=== PATIENT | male | born 1935 | race Caucasian/White ===

== ENCOUNTER 2022-07-26 07:41 | Outpatient (CLI) | payer MEDICARE, SELFPAY ==
[2022-07-26 09:57] LABS: Chloride* 106 mmol/L (96-114)
[2022-07-26 09:58] LABS: Potassium* 4.4 mmol/L (3.6-5.1); Sodium* 142 mmol/L (135-149)
[2022-07-26 10:00] LABS: Alkaline Phosphatase* 74 U/L (40-150); Aspartate Amino Transferase* 37 U/L (12-35); Blood Urea Nitrogen* 18 mg/dL (7-30); Carbon Dioxide* 33 mmol/L (20-32); Cholesterol* 126 mg/dL (90-199); Creatinine* 0.8 mg/dL (0.5-1.5); Estimated Glomerular Filt Rate 86 ml/min; Glucose* 108 mg/dL (60-115); Total Protein* 6.5 g/dL (6.0-8.3)
[2022-07-26 10:01] LABS: Alanine Aminotransferase* 32 U/L (4-50); Calcium* 8.9 mg/dL (8.4-10.6); HDL Cholesterol* 49 mg/dL (>=40); LDL Cholesterol Calculated 62 mg/dL (<100); Triglycerides* 74 mg/dL (40-149)
[2022-07-26 10:32] LABS: PSA Screen* 1.21 ng/mL (0.10-4.00)
== END 2022-07-26 07:42 | disposition home or self-care (01) ==
LOC: NFLDREF 07:41
PROVIDERS: PCP Family Medicine; Visit Provider Family Medicine
DX: E78.5 Hyperlipidemia, unspecified (principal); Z12.5 Encounter for screening for malignant neoplasm of prostate
CPT/HCPCS: 80053; 80061; 84153

== ENCOUNTER 2023-07-31 07:52 | Outpatient (CLI) | payer OTHER, SELFPAY ==
--- OUTSIDE RECORDS SUMMARY | 2023-07-31 13:33 | XMS_ITS | Clinical Summary ---
Author Name Unknown Organization [facility] Address [place], [place] [address] Care Team Providers Care Local Area Network Administrator Name Role Phone Mehnaz Hubbard MD Primary Care Provider + Allergies No known active allergies Medications Medication Sig Dispensed Refills Start Date End Date Status metoprolol succinate (TOPROL XL) 50 mg sustained-release tablet Take 1 tablet by mouth once daily. 0 Active ramipril (ALTACE) 5 mg capsule Take 1 capsule by mouth once daily. 0 Active sildenafil citrate (VIAGRA) 100 mg tablet As Needed 0 Ac tive atorvastatin (LIPITOR) 40 mg tablet Take 1 tablet by mouth once daily. 0 Active aspirin (ECOTRIN) 81 mg enteric coated tablet Take 1 tablet by mouth once daily with a meal. 0 07/14/2020 Active Active Problems Problem Noted Date Diagnosed Date Keratitis sicca, left eye 07/20/2021 Heart failure with reduced ejection fraction 09/2021 Angina, class III 07/20/2021 Coronary artery disease invo lving [place] coronary artery of [place] heart without angina pectoris 07/20/2021 Mixed hyperlipidemia 07/20/2021 Mitral valve insufficiency 07/20/2021 Ascending aorta dilatation 07/20/2021 HTN (hypertension) 07/20/2021 Social History Tobacco Use Types Packs/Day Years Used Date Smoking Tobacco: Never Assessed Social Connections Answer Date Recorded Frequency of Communication with Friends and Fami ly Not on file 06/16/2021 Financial Resource Strain Answer Date R ecorded Difficulty of Paying Living Expenses Not on file 06/16/2021 Difficulty of Paying Living Expenses Not on file 06/16/2021 Sex and Gender Information Value Date Recorded Sex Assigned at Not on file Gender Identity Not on file Sexual Orientation Not on file Obstetrics History Last Filed Vital Signs Vital Sign Reading Time Taken Comments Blood Pressure 122/64 07/14/2020 9:41 AM [employer] NURSE Pulse 70 07/14/2020 9:41 AM [facility] NURSE Temperature - - Respiratory Rate 16 07/14/2020 9:41 AM [facility] NURSE Oxygen Saturation 96% 07/06/2019 2:52 PM [facility] NURSE Inhaled Oxygen Concentration - - Weight 97.5 kg (215 lb) 07/14/2020 9:41 AM [facility] NURSE Height - - Body Mass Index - - Plan of Treatment Upcoming Encounters Date Type Department Care Team (Late st Contact Info) Description 08/01/2023 9:30 AM [facility] NURSE Office Visit [facility] [place] [facility] [address] [place] [address] Toan Galeano MD [address] [place] [address] Health Maintenance Due Date Last Done Comments Tdap 1946 Depression screening for age 12+ 1947 BMI (ht and wt on same day) for age 18+ 1953 Tetanus booster 1955 Zoster (shingles) series for age 50+ (1 of 2) 1985 Medicare Wellness for age 65+ 02/22/2000 Pneumococcal series for age 65+ (1 of 1 - PCV) 02/22/2000 COVID-19 vaccine series (2022-24 season) 2023 03/14/2022, 10/03/2021, 02/08/2021, Additional history exists Influenza for age 65+ 02/14/2023 Care Teams Local Area Network Administrator Relationship Specialty Start Date End Date Mehnaz Hubbard MD [address] [place] [address] PCP - General Family Practice 04/14/17
== END 2023-07-31 07:53 | disposition home or self-care (01) ==
LOC: NFLDREF 13:31
PROVIDERS: PCP Family Medicine; Referring Provider Family Medicine; Visit Provider Family Medicine
DX: I10 Essential (primary) hypertension (principal); E78.5 Hyperlipidemia, unspecified; R73.03 Prediabetes; Z12.5 Encounter for screening for malignant neoplasm of prostate
CPT/HCPCS: 80053; 80061; 86803; G0103

== ENCOUNTER 2023-08-06 07:47 | Outpatient (CLI) | payer OTHER, SELFPAY | END 2023-08-06 07:48 | disposition home or self-care (01) | LOC: NFLDREF 08-07 07:33 | PROVIDERS: PCP Family Medicine; Referring Provider Family Medicine; Visit Provider Family Medicine | DX: R74.01 Elevation of levels of liver transaminase levels (principal) | CPT/HCPCS: 86803 ==

== ENCOUNTER 2024-03-25 19:41 | Emergency (ER) | payer OTHER, SELFPAY ==
[2024-03-25 19:48] VITALS: BP 158/74; PULSE 74; RESP 16; TEMP 36.4; O2SAT 97; BMI 23.7
--- NOTE | 2024-03-25 21:28 | ED_ITS ---
HPI - General Adult General Date Seen: 03/25/24 Chief complaint: Skin/Abscess/Foreign Body Stated complaint: cut on neck Time Seen by Provider: 03/25/24 21:21 History of Present Illness HPI narrative: 89 yo M with past medical history including coronary artery disease, hypertension, dilation of his aortic root, history of squamous cell carcinoma of the skin and actinic keratoses, dyslipidemia. He is on baby aspirin but no other anticoagulants. At about 10 this morning He had a lesion removed from his right cheek just anterior to his ear at a tumbling machine operator. At about 3:00 p.m. he started to have bleeding from the spot. He tried putting Band-Aids on it but the wound continues to bleed. It has been oozing dark red venous blood but no pulsatile bleeding. It is not painful. Related Data Home Medications ?Medication ?Instructions ?Recorded ?Confirmed aspirin 81 mg tablet,delayed 162 mg PO QDAY 07/30/22 03/25/24 release melatonin 3 mg capsule 3 mg PO ONCE 07/30/22 03/25/24 omega 1-opv-mmf-fish oil 1,000 mg 1 cap PO BID 07/30/22 03/25/24 (120 mg-180 mg) capsule (Fish Oil) prednisolone acetate 1 % eye 1 drp ophthalmic (eye) DAILY 07/30/22 03/25/24 drops,suspension Previous Rx's ?Medication ?Instructions ?Recorded atorvastatin 40 mg tablet 40 mg PO QDAY #90 tabs 08/05/23 ramipril 5 mg capsule 5 mg PO QDAY #90 caps 08/05/23 metoprolol succinate 50 mg 50 mg PO QDAY #90 tabs 11/03/23 tablet,extended release 24 hr Allergies Allergy/AdvReac Type Severity Reaction Status Date / Time No Known Allergies Allergy Unknown Verified 08/05/23 09:41 [facility] Medical History (Updated 03/25/24 @ 22:14 by Robby Maynard MD) Aortic root dilation ?I77.810 - Thoracic aortic ectasia (ICD-10) Squamous cell carcinoma of skin ?C44.92 - Squamous cell carcinoma of skin, unspecified (ICD-10) Lumbar back pain ?M54.50 - Low back pain, unspecified (ICD-10) Legal blindness of left eye, as defined in [place] ?H54.8 - Legal blindness, as defined in [place] (ICD-10) Hypertension ?I10 - Essential (primary) hypertension (ICD-10) History of placement of stent in anterior descending branch of left coronary artery (01/2006) ?Z95.5 - Presence of coronary angioplasty implant and graft (ICD-10) History of colonic polyps ?Z86.010 - Personal history of colonic polyps (ICD-10) Dupuytren's disease ?M72.0 - Palmar fascial fibromatosis [Dupuytren] (ICD-10) Coronary artery disease (2005) ?I25.10 - Atherosclerotic heart disease of [place] coronary artery without angina pectoris (ICD-10) Adenomatous polyp of colon (~02/2021) ?D12.6 - Benign neoplasm of colon, unspecified (ICD-10) Surgical History (Updated 07/30/22 @ 08:04 by Mehnaz Hubbard MD) History of Mohs micrographic surgery for skin cancer (07/30/22) ?Z85.828 - Personal history of other malignant neoplasm of skin (ICD-10) ?Z98.890 - Other specified postprocedural states (ICD-10) History of tonsillectomy and adenoidectomy ?Z90.89 - Acquired absence of other organs (ICD-10) History of tonsillectomy (1940) ?Z90.89 - Acquired absence of other organs (ICD-10) History of Mohs surgery for squamous cell carcinoma of skin (2017) ?Z98.890 - Other specified postprocedural states (ICD-10) ?Z85.828 - Personal history of other malignant neoplasm of skin (ICD-10) History of cornea transplant ?Z94.7 - Corneal transplant status (ICD-10) History of cornea transplant (1987) ?Z94.7 - Corneal transplant status (ICD-10) History of colonoscopy with polypectomy (2008) ?Z98.890 - Other specified postprocedural states (ICD-10) ?Z86.010 - Personal history of colonic polyps (ICD-10) History of cataract extraction ?Z98.49 - Cataract extraction status, unspecified eye (ICD-10) Family History (Updated 01/28/22 @ 10:11 by Davina Coffey) Mother Coronary artery disease Brother Coronary artery disease Prostate cancer, Onset Age: 66 Social History (Updated 07/25/23 @ 11:33 by Malia Montemayor ~ CTA) Narrative: Does not drink alcohol Exercises 3 to 4 times per week- gym with emr trainer , 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, 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 Non-smoker What is your current living situation?: I presently have a place to live Problems where you live: no known problems In the past 12 months, utilities in danger of being shut off: no In past 12 months, lack of transportation kept you from medical appts, meetings, work, or getting things needed for daily living: no In the past 12 mos, have been you worried that your food would run out before you had money to buy more?: never true In the past 12 mos, the food you bought just didn't last and you didn't have money to buy more?: never true Smoking Status: Former smoker How often does anyone, including family, friends and others, physically hurt you : never How often does anyone, including family, friends and others, insult or talk down to you: never How often does anyone, including family, friends and others, threaten you with harm: never How often does anyone, including family, friends and others, scream or curse at you: never Little interest or pleasure in doing things: not at all Feeling down, depressed, or hopeless: not at all Exam Narrative: Exam Narrative: Constitutional: Appears well-developed and well-nourished. Active. Non-toxic appearing. HENT: Head: Atraumatic. No signs of injury. Nose: No nasal discharge. Mouth/Throat: Mucous membranes are moist. Pharynx is normal. Tonsils symmetric. Uvula midline. Airway patent. Eyes: Conjunctivae normal and EOM are normal. Pupils are equal, round, and reactive to light. Right eye exhibits no discharge. Left eye exhibits no discharge. No icterus. Neck: Normal range of motion. Neck supple. No adenopathy. No stridor. Cardiovascular: Normal rate and regular rhythm. No murmur heard. No murmurs, rubs, or gallops. Brisk capillary refill Pulmonary/Chest: Effort normal. No stridor. No respiratory distress. No wheezes.No rhonchi. No rales. No retractions. Abdominal: Soft. Bowel sounds are normal. No distension. No mass. There is no tenderness. There is no rebound and no guarding. Musculoskeletal: Normal range of motion. No edema. No tenderness. No deformity. Neurological: Alert. Normal strength. No cranial nerve deficit or sensory deficit. Coordination normal. GCS eye subscore is 4. GCS verbal subscore is 5. GCS motor subscore is 6. Skin: He has received please on the wound anterior to his right ear on the right cheek. When I take off the dressing there is a small amount of dark red venous oozing. There is a roughly 5-6 cm skin lesion where the patient had a excision at the tumbling machine operator. In the center of this there is a 2-3 mm area of deeper incision which is actively bleeding. Skin is otherwise pink, warm warm. No rash noted. Const: Vital Signs, click to edit/add: Vital Signs - 24 hr 03/25/24 19:48 Temperature 97.5 F L Pulse Rate [Pulse Oximeter] 74 Respiratory Rate 16 Blood Pressure [Ri ght Upper Arm] 158/74 H Pulse Oximetry 97 Oxygen Delivery Me thod Room Air Course Course ED Course: Procedure: Wound evaluation and repair. Indication: Bleeding skin cancer excision site from tumbling machine operator The wound was prepped in sterile fashion. Using a 27 gauge half-inch needle I infiltrated 2 mL of 1% lidocaine with epi locally under the wound. Patient tolerated this well. Bleeding still persisted in a slow venous ooze. Using 5 0 Ethilon I placed 2 simple interrupted sutures to over-sew and tamponade the bleeding area in the center of the wound. With this, good hemostasis was ach ieved. He had minimal ongoing oozing from the shallower part of the wound on its inferior edge. I placed a 1 centimeter sq bit of Gelfoam and good hemostasis was achieved. The Gelfoam was held in place by placement of a Tegaderm. He was monitored and no recurrent bleeding occurred. Vital Signs Vital signs: Initial Vital Signs Temperature 97.5 F L 03/25/24 19:48 Temperature Source Temporal Artery Scan 03/25/24 19:48 Pulse Rate 74 03/25/24 19:48 Respiratory Rate 16 03/25/24 19:48 Blood Pressure 158/74 H 03/25/24 19:48 Blood Pressure Mean 102 03/25/24 19:48 Blood Pressure Position Sitting 03/25/24 19:48 Pulse Oximetry 97 03/25/24 19:48 Oxygen Delivery Method Room Air 03/25/24 19:48 Vital Signs Temperature 97.5 F L 03/25/24 19:48 Pulse Rate 74 03/25/24 19:48 Respiratory Rate 16 03/25/24 19:48 Blood Pressure 158/74 H 03/25/24 19:48 Pulse Oximetry 97 03/25/24 19:48 Oxygen Delivery Method Room Air 03/25/24 19:48 Temperature 97.5 F L 03/25/24 19:48 Pulse Rate 74 03/25/24 19:48 Respiratory Rate 16 03/25/24 19:48 Blood Pressure 158/74 H 03/25/24 19:48 Pulse Oximetry 97 03/25/24 19:48 Oxygen Delivery Method Room Air 03/25/24 19:48 Medical Decision Making MDM Narrative Medical decision making narrative: Findings and exam are consistent with bleeding from a skin cancer removal site after having had the procedure performed by his tumbling machine operator this morning. He did have ongoing bleeding here in the ER. The bleeding was continuous but small volume. He does not require hemoglobin monitoring or transfusion at this time. No arterial bleeding. We were able to achieve good hemostasis by over-sewing the bleeding part of the wound. We then placed a dressing with Gelfoam as well. The patient is to follow up for suture removal as instructed in 5 days. Indications to seek urgent reevaluation and signs of infection (including but not limited to increasing pain, redness, swelling, fevers, and drainage) were reviewed. Tetanus is up-to-date. This is a clean and non-contaminated wound in which prophylactic antibiotics are not indicated. An understanding of the discharge instructions and need for follow up were verbally confirmed. Discharge Plan Discharge Clinical Impression: Cheek wound Patient Disposition: Home, Self-Care Condition: Stable Instructions: Acute Wounds (DC) Additional Instructions: As we discussed, please come back to the ER right away if you have any more bleeding or any other problems. After tomorrow you can take off the dressing and clean the wound gently if needed. Reapply a another Band-Aid to cover the wound in the stitches. Change the dressing every day. Be sure to have the stitches taken out within about 5 days. If your tumbling machine operator is going to see you in follow-up in clinic next week, your tumbling machine operator could remove the stitches. If your tumbling machine operator does not need to see you, please follow-up with your regular doctor to have the stitches removed. Watch for infection. If you develop any redness, swelling, or pus draining from the wound, come back to the ER to be rechecked right away. Prescriptions: No Action aspirin 81 mg tablet,delayed release (DR/EC) 162 mg PO QDAY omega 4-ezm-txb-fish oil [Fish Oil] 1,000 mg (120 mg-180 mg) capsule 1 cap PO BID melatonin 3 mg capsule 3 mg PO ONCE prednisolone acetate 1 % drops,suspension 1 drp ophthalmic (eye) DAILY atorvastatin 40 mg tablet 40 mg PO QDAY Qty: 90 3RF ramipril 5 mg capsule 5 mg PO QDAY Qty: 90 3RF metoprolol succinate 50 mg tablet extended release 24 hr 50 mg PO QDAY Qty: 90 2RF Follow Up/Referrals: Mehnaz Hubbard MD [Primary Care Provider] - Stand Alone Forms: [employer] Info Instructions
--- OUTSIDE RECORDS SUMMARY | 2024-03-25 22:17 | XMS_ITS | Clinical Summary ---
Author Organization [facility] Address [place], [place] [address] Care Team Providers Care Search Strategist Name Role Phone Mehnaz Hubbard MD Primary Care Provider + Allergies No known active allergies Medications Medication Sig Dispensed Refills Start Date End Date Status metoprolol succinate (TOPROL XL) 50 mg sustained-release tablet Take 1 tablet by mouth once daily. Active ramipril (ALTACE) 5 mg capsule Take 1 capsule by mouth once daily. Active sildenafil citrate (VIAGRA) 100 mg tablet As Needed Ac tive atorvastatin (LIPITOR) 40 mg tablet Take 1 tablet by mouth once daily. Active aspirin (ECOTRIN) 81 mg enteric coated tablet Take 1 tablet by mouth once daily with a meal. 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 Pulse 70 07/14/2020 9:41 AM DRIVER'S LICENSE REVIEWING OFFICER Temperature - - Respiratory Rate 16 07/14/2020 9:41 AM DRIVER'S LICENSE REVIEWING OFFICER Oxygen Saturation 96% 07/06/2019 2:52 PM DRIVER'S LICENSE REVIEWING OFFICER Inhaled Oxygen Concentration - - Weight 97.5 kg (215 lb) 07/14/2020 9:41 AM DRIVER'S LICENSE REVIEWING OFFICER Height - - Body Mass Index - - Plan of Treatment Health Maintenance Due Date Last Done Comments Tdap 1946 Depression screening for age 12+ 1947 BMI (ht and wt on same day) for age 18+ 1953 Tetanus booster 1955 Zoster (shingles) series for age 50+ (1 of 2) 1985 Medicare Wellness for age 65+ 02/22/2000 Pneumococcal series for age 65+ (1 of 1 - PCV) 02/22/2000 RSV vaccine for adults or (1 - 1-dose 75+ series) 2010 COVID-19 vaccine series (2023- season) 2024 04/21/2023, 10/21/2022, 03/14/2022, Additional history exists Influenza for age 65+ 02/15/2024 Care Teams Search Strategist Relationship Specialty Start Date End Date Mehnaz Hubbard MD [address] [place] [address] PCP - General Family Practice 04/14/17
== END 2024-03-25 22:25 | disposition home or self-care (01) ==
LOC: ED 22:16
PROVIDERS: Emergency Provider Emergency Medicine; PCP Family Medicine
DX: L76.21 Postprocedural hemorrhage of skin and subcutaneous tissue following a dermatologic procedure (principal)
CPT/HCPCS: 99282; 99283

== ENCOUNTER 2024-07-22 07:41 | Outpatient (CLI) | payer OTHER, SELFPAY | END 2024-07-22 07:42 | disposition home or self-care (01) | LOC: NFLDREF 07-28 02:59 | PROVIDERS: PCP Family Medicine; Referring Provider Family Medicine; Visit Provider Family Medicine | DX: E78.5 Hyperlipidemia, unspecified (principal); I10 Essential (primary) hypertension; R73.01 Impaired fasting glucose; Z12.5 Encounter for screening for malignant neoplasm of prostate | CPT/HCPCS: 80053; 80061; G0103 ==